=== PATIENT | female | born 1995 | race Caucasian/White ===

== ENCOUNTER 2017-05-11 03:14 | Emergency (ER) | payer SELFPAY ==
[~2017-05-11] VITALS: Ht 160 cm; Wt 61.6 kg
[2017-05-11 04:36] LABS: CHLORIDE 99 mEq/L (99-109); POTASSIUM 3.3 mEq/L (3.7-5.4); SODIUM 133 mEq/L (136-147)
[2017-05-11 04:38] LABS: GLUCOSE 132 mg/dL (70-99)
[2017-05-11 04:39] LABS: BASOPHIL (%) 0.1 % (0-1); EOSINOPHIL (%) 0 % (0-5); HEMATOCRIT 35.6 % (36.0-46.0); HEMOGLOBIN 12.4 G/DL (11.9-15.5); IMMATURE GRANULOCYTE (%) 0.4 % (0.0-0.7); LYMPHOCYTE (%) 5.2 % (15-42); LYMPHOCYTE COUNT 0.7 K/uL (1.0-2.8); MCH 29.5 PG (29.0-34.0); MCHC 34.8 G/DL (30.0-36.0); MCV 84.6 FL (83-99); MONOCYTE (%) 8.8 % (3-12); MONOCYTE COUNT 1.3 K/uL (0-0.8); NEUTROPHIL (%) 85.5 % (45-76); NEUTROPHIL COUNT 12.1 K/uL (1.8-6.4); PLATELET COUNT 129 K/uL (156-360); RBC DIS.WIDTH-CV 13.4 % (11.8-14.6); RBC DIS.WIDTH-SD 41.1 % (39-53); RED BLOOD COUNT 4.21 M/uL (3.80-5.20); WHITE BLOOD COUNT 14.2 K/uL (4.1-10.2)
[2017-05-11 04:41] LABS: GFR ESTIMATE (CALCULATED) > 59 mL/min/
[2017-05-11 04:42] LABS: UREA NITROGEN (BUN) 15 mg/dL (9-23)
[2017-05-11 04:44] LABS: CREATINE KINASE 77 IU/L (1-294)
[2017-05-11 04:50] LABS: QUANTITATIVE HCG < 4.0 MIU/ML
[2017-05-11 06:35] LABS: APPEARANCE CLOUDY ((CLEAR)); BILIRUBIN NEGATIVE; BLOOD SMALL; COLOR AMBER ((YELLOW)); GLUCOSE (STRIP) NEGATIVE; KETONES 20; LEUKOCYTES LARGE; NITRITE NEGATIVE; PROTEIN (STRIP) 100; SPECIFIC GRAVITY 1.018 (1.000-1.030)
[2017-05-11 07:03] LABS: EPITHELIAL CELLS 1+ /HPF; RED BLOOD CELLS RARE /HPF (0-5); WHITE BLOOD CELLS 15-20 /HPF (0-5)
[2017-05-11] MEDS ORDERED: KEFLEX500 MG PO (07:03)
[2017-05-11 07:04] LABS: BACTERIA 1+ /HPF; MUCUS NONE SEEN /LPF
[2017-05-11] MEDS ORDERED: ZOFRAN ODT8 MG PO (07:04)
[2017-05-11] MEDS ORDERED: MOTRIN800 MG PO (07:04)
[2017-05-11 08:40] VITALS: BP 109/62
== END 2017-05-11 08:44 | disposition home or self-care (01) ==
LOC: EME 03:14
PROVIDERS: Physician Assistant
DX: N12 Tubulo-interstitial nephritis, not specified as acute or chronic (principal); R11.2 Nausea with vomiting, unspecified; E87.6 Hypokalemia; F17.200 Nicotine dependence, unspecified, uncomplicated
CPT/HCPCS: 74176; 80048; 81003; 82550; 83605; 84702; 85025; 87040; 87077; 87086; 87186; 99281; 99285; J0696; J1885; J2405; J3010; J7030